=== PATIENT | male | born 1945 | race Caucasian/White ===

== ENCOUNTER 2023-10-17 06:32 | Day surgery (SDC) | payer OTHER, SELFPAY ==
[2023-10-17] VITALS (9 sets, daily range): BP systolic 123–173; BP diastolic 58–86; BMI 25.4
[2023-10-17] MEDS: CYSVIEW KIT 100 MG INTRAVES (12:17)
[2023-10-17] MEDS: NORMOSOL-R 1000 IV (12:34)
[2023-10-17] MEDS: SYRINGE NON-PUMP 50 ML IRRIG (15:47)
[2023-10-17] MEDS: SYRINGE NON-PUMP 50 MG IRRIG (15:47)
== END 2023-10-17 17:57 | disposition home or self-care (01) ==
LOC: SDS 06:32
PROVIDERS: ATTENDING PHYSICIAN Specialist
DX: C67.0 Malignant neoplasm of trigone of bladder (principal); N30.40 Irradiation cystitis without hematuria
CPT/HCPCS: 52235; C9738; 88307; 85610; A9589

== ENCOUNTER → 2023-11-06 14:36 | Outpatient (REF) | payer OTHER, SELFPAY | LOC: HWRAD 14:36 | PROVIDERS: ATTENDING PHYSICIAN Specialist; FAMILY PHYSICIAN Registered Nurse | DX: C67.0 Malignant neoplasm of trigone of bladder (principal) | CPT/HCPCS: 74178; Q9967 ==

== ENCOUNTER 2024-02-08 06:14 | Day surgery (SDC) | payer OTHER, SELFPAY ==
[2024-01-31 08:00] VITALS: BMI 26.3
[2024-01-31 09:01] LABS: Hemoglobin 13.4 g/dL (13.0-18.0); Mean Corp Hgb Conc. 32.7 g/dL (33.0-37.0); Mean Corpuscular Hgb 28.2 pg (27.0-31.0); Mean Corpuscular Volume 86.1 fL (80.0-94.0); Mean Platelet Volume 9.9 fL (7.4-10.4); Platelet Count 226 10^3/uL (130-400); Red Blood Cell Count 4.76 10^6/uL (4.70-6.10); Red Cell Dist. Width 13.9 % (11.5-14.5); Urine Albumin Trace (Neg - Trace); Urine Bilirubin Negative (Negative); Urine Character Clear (Clear); Urine Color Yellow; Urine Glucose Negative (Negative); Urine Ketone Negative (Negative); Urine Leukocyte 1+ (Negative); Urine Nitrite Negative (Negative); Urine Occult Blood 3+ (Negative); Urine Urobilinogen Negative (Neg - 1+); White Blood Cell Count 6.3 10^3/uL (4.8-10.8)
[2024-01-31 09:14] LABS: APTT 30.1 Sec (23.4-35.0); INR 1.15; PT 14.5 Sec (11.4-14.6)
[2024-01-31 09:23] LABS: Blood Urea Nitrogen 33 mg/dl (9-20); Calcium 9.5 mg/dl (8.4-10.2); Carbon Dioxide 22 mmol/L (22-30); Chloride 107 mmol/L (98-107); Estimated Creatinine Clearance 56 ml/min; Glucose 105 mg/dl (70-99); Potassium 4.5 mmol/L (3.5-5.1); Sodium 139 mmol/L (135-145); eGFR > 60.00
[2024-01-31 10:10] LABS: Urine Squamous Cell 0-2 /LPF (Few)
[2024-01-31 10:12] LABS: Urine Bacteria Few (Negative)
--- NOTE | 2024-01-31 14:35 | PTCARENOTE ---
Urine WBC's 11-15 collected today; Zulma at ' office was notified.
[2024-02-08] VITALS (10 sets, daily range): BP systolic 121–165; BP diastolic 66–96; BMI 26.3
[2024-02-08] MEDS: CYSVIEW KIT 100 MG INTRAVES (09:57)
--- NOTE | 2024-02-08 10:37 | PTCARENOTE ---
Patient states he took Plavix up until yesterday on 02/08/24. Dr. Ray notified and per kristina lucia MD is ok to proceed with surgery.
[2024-02-08] MEDS: NORMOSOL-R 1000 IV (10:42)
--- NOTE | 2024-02-08 10:50 | PTCARENOTE ---
Patient seen at the bedside by Dr. Huber after hearing about Plavix. Patient states to surgeon that on his last surgery he also did not stop his Plavix. Ok to proceed with surgery.
[2024-02-08] MEDS: SYRINGE NON-PUMP 50 ML IRRIG ×2 (12:28→12:29)
[2024-02-08] MEDS: SYRINGE NON-PUMP 50 MG IRRIG ×2 (12:28→12:29)
[2024-02-08] MEDS: Pyridium 200 MG PO (13:15)
== END 2024-02-08 14:50 | disposition home or self-care (01) ==
LOC: SDS 06:14
PROVIDERS: ATTENDING PHYSICIAN Specialist; FAMILY PHYSICIAN Registered Nurse
DX: N30.90 Cystitis, unspecified without hematuria (principal); Z85.46 Personal history of malignant neoplasm of prostate; Z85.51 Personal history of malignant neoplasm of bladder
CPT/HCPCS: 52235; C9738; 88307; 36415; 80048; 81003; 81015; 85027; 85610; 85730; A9589

== ENCOUNTER → 2024-08-22 07:36 | Outpatient (REF) | payer OTHER, SELFPAY | LOC: RAD 07:36 | PROVIDERS: ATTENDING PHYSICIAN Specialist; FAMILY PHYSICIAN Registered Nurse | DX: C61 Malignant neoplasm of prostate (principal) | CPT/HCPCS: 74178; Q9967 ==

== ENCOUNTER → 2024-10-11 10:13 | Outpatient (REF) | payer OTHER, SELFPAY | LOC: HWRAD 10:13 | PROVIDERS: ATTENDING PHYSICIAN Registered Nurse | DX: Z87.891 Personal history of nicotine dependence (principal) | CPT/HCPCS: 71271 ==

== ENCOUNTER → 2025-05-08 07:53 | Outpatient (REF) | payer OTHER, SELFPAY | LOC: RAD 07:53 | PROVIDERS: ATTENDING PHYSICIAN Registered Nurse | DX: R74.8 Abnormal levels of other serum enzymes (principal); Z85.51 Personal history of malignant neoplasm of bladder; Z85.46 Personal history of malignant neoplasm of prostate | CPT/HCPCS: 78803; A9503 ==